=== PATIENT | female | born 1970 | race Caucasian/White ===

== ENCOUNTER 2018-01-13 10:03 | Emergency (ER) | payer SELFPAY, OTHER ==
[2018-01-13] MEDS ORDERED: methylPREDNISolone Sod Succ/PF 125 MG/2 ML VIAL ONE (11:06)
[2018-01-13] MEDS ORDERED: Acetaminophen/Codeine 30-300mg Tablet ONE (11:06)
== END 2018-01-13 11:34 | disposition home or self-care (01) ==
LOC: NAV ERS 10:03
DX: M54.5 Low back pain (principal); I10 Essential (primary) hypertension; I25.10 Atherosclerotic heart disease of native coronary artery without angina pectoris; E11.9 Type 2 diabetes mellitus without complications; I25.2 Old myocardial infarction; E66.9 Obesity, unspecified; J44.9 Chronic obstructive pulmonary disease, unspecified; F31.9 Bipolar disorder, unspecified; F17.210 Nicotine dependence, cigarettes, uncomplicated
CPT/HCPCS: 96372; J2930

== ENCOUNTER 2018-10-15 19:49 | Emergency (ER) | payer SELFPAY ==
[2018-10-15] MEDS ORDERED: Clindamycin 150 MG CAP ONE (20:23)
[2018-10-15] MEDS ORDERED: Morphine 4 MG/ML VIAL ONE (20:23)
== END 2018-10-15 20:37 | disposition home or self-care (01) ==
LOC: NAV ERS 19:49
DX: K04.7 Periapical abscess without sinus (principal); I25.10 Atherosclerotic heart disease of native coronary artery without angina pectoris; I25.2 Old myocardial infarction; E11.9 Type 2 diabetes mellitus without complications; I10 Essential (primary) hypertension; E66.9 Obesity, unspecified; J44.9 Chronic obstructive pulmonary disease, unspecified; F31.9 Bipolar disorder, unspecified; F41.9 Anxiety disorder, unspecified; F17.210 Nicotine dependence, cigarettes, uncomplicated
CPT/HCPCS: 96372; J2270

== ENCOUNTER 2019-01-14 10:49 | Emergency (ER) | payer SELFPAY | END 2019-01-14 11:29 | disposition home or self-care (01) | LOC: NAV ERS 10:49 | DX: J06.9 Acute upper respiratory infection, unspecified (principal); I25.2 Old myocardial infarction; E11.9 Type 2 diabetes mellitus without complications; I10 Essential (primary) hypertension; J44.9 Chronic obstructive pulmonary disease, unspecified; F17.210 Nicotine dependence, cigarettes, uncomplicated; Z79.899 Other long term (current) drug therapy | CPT/HCPCS: 99281 ==